=== PATIENT | female | born 1930 | race Caucasian/White ===

== ENCOUNTER → 2017-07-21 | Outpatient (CLI) | payer OTHER ==
[~2017-07-21] MED LIST: Amlodipine Besy10 MG PO; CLON.1 PO; COL-RITE250 MG PO; DONE10 PO; FISH1000 PO; Hydrocodone-Ap1 EA20 PO; Multiple Vitam1 EAC1 PO; Oxybutynin Chlo10 MG PO; TRIHYD253A PO; Zestril40 MG PO
== END ==
LOC: LAB SHORT 12:00
DX: R82.99 Other abnormal findings in urine (principal); R30.9 Painful micturition, unspecified
CPT/HCPCS: 87077; 87086; 87186

== ENCOUNTER → 2017-12-31 | Outpatient (CLI) | payer OTHER | END | disposition home or self-care (01) | LOC: PLD 08:19 → LAB SHORT 08:19 → EDSTATUS 10:00 | DX: D04.39 Carcinoma in situ of skin of other parts of face (principal); L57.8 Other skin changes due to chronic exposure to nonionizing radiation | CPT/HCPCS: 88305 ==

== ENCOUNTER → 2018-10-03 | Outpatient (CLI) | payer OTHER | END | disposition home or self-care (01) | LOC: LAB 09:37 → LAB SHORT 09:37 | DX: R30.0 Dysuria (principal) | CPT/HCPCS: 87077; 87086; 87147; 87186 ==

== ENCOUNTER → 2018-12-01 | Outpatient (CLI) | payer OTHER | END | disposition home or self-care (01) | LOC: LAB SHORT 10:53 → LAB 10:53 | DX: N39.0 Urinary tract infection, site not specified (principal); R30.0 Dysuria | CPT/HCPCS: 87077; 87086; 87186 ==

== ENCOUNTER → 2019-01-14 | Outpatient (CLI) | payer OTHER | END | disposition home or self-care (01) | LOC: LAB SHORT 12:30 → LAB 12:30 | DX: R30.0 Dysuria (principal) | CPT/HCPCS: 87077; 87086; 87186 ==

== ENCOUNTER → 2019-01-26 | Outpatient (CLI) | payer OTHER | END | disposition home or self-care (01) | LOC: LAB SHORT 07:44 → PLD 07:44 | DX: D04.62 Carcinoma in situ of skin of left upper limb, including shoulder (principal) | CPT/HCPCS: 88305 ==

== ENCOUNTER → 2019-02-05 | Outpatient (CLI) | payer OTHER | END | disposition home or self-care (01) | LOC: LAB SHORT 17:08 → LAB 17:08 | DX: R30.0 Dysuria (principal) | CPT/HCPCS: 87077; 87086; 87186 ==

== ENCOUNTER → 2019-04-21 | Outpatient (CLI) | payer OTHER | END | disposition home or self-care (01) | LOC: LAB 19:27 → LAB SHORT 19:27 | DX: N39.0 Urinary tract infection, site not specified (principal) | CPT/HCPCS: 87077; 87086; 87186 ==

== ENCOUNTER 2019-10-09 17:39 | Inpatient (IN) | payer OTHER ==
[~2019-10-09] VITALS: Ht 152.4 cm; Wt 45.2 kg
[~2019-10-09 17:39] MED LIST changes: +Daily Multiple1 EACH PO; -Hydrocodone-Ap1 EA20 PO; -Multiple Vitam1 EAC1 PO; +NORCO 10-325 T1 EACH PO; +OXYB5 PO; -Oxybutynin Chlo10 MG PO
[2019-10-09] MEDS ORDERED: Cranberry300 MG PO (18:52)
[2019-10-09] MEDS ORDERED: Vitamin D2000 UNIT PO (18:52)
[2019-10-09] MEDS ORDERED: SENN187 PO (18:52)
[2019-10-09 19:04] LABS: BASOPHILS ABSOLUTE AUTO 0.03 K/mm3 (0.00-0.23); BASOPHILS PERCENT AUTO 0 % (0-2); EOSINOPHILS ABSOLUTE AUTO 0.08 K/mm3 (0.00-0.68); EOSINOPHILS PERCENT AUTO 1 % (0-6); Hematocrit 31.6 % (33.0-51.0); Hemoglobin 10.6 g/dL (11.5-16.0); IMMATURE GRAN ABSOLUTE AUTO 0.02 K/mm3 (0.00-0.10); IMMATURE GRAN PERCENT AUTO 0 % (0-1); LYMPHOCYTES ABSOLUTE AUTO 0.36 K/mm3 (0.84-5.20); LYMPHOCYTES PERCENT AUTO 4 % (21-46); MONOCYTES PERCENT AUTO 5 % (4-13); Mean Corpuscular HGB 32.5 pg (26.0-34.0); Mean Corpuscular HGB Conc 33.5 g/dL (31.5-36.5); Mean Corpuscular Volume 97 fL (80-100); Mean Platelet Volume 12.2 fL (9.1-12.4); NEUTROPHILS ABSOLUTE AUTO 7.69 K/mm3 (1.96-9.15); NEUTROPHILS PERCENT AUTO 90 % (41-73); Platelet Count 159 K/mm3 (150-400); RDW Coefficient Variation 12.7 % (11.7-14.2); RDW Standard Deviation 45.2 fL (35.1-46.3); Red Blood Cell Count 3.26 M/mm3 (3.80-5.20); White Blood Cell Count 8.58 K/mm3 (4.00-11.30)
[2019-10-09 19:27] LABS: Alanine Aminotransfer (ALT/SGP 21 U/L (12-78); Albumin, Blood 3.5 g/dL (3.4-5.0); Albumin/Globulin Ratio 1.1 (0.8-1.8); Alk Phos 55 U/L (50-136); Anion Gap 7 mmol/L (6-16); Aspartate Aminotrans (AST/SGOT 14 U/L (12-37); Bilirubin, Total 0.3 mg/dL (0.1-1.0); Blood Urea Nitrogen 26 mg/dL (8-24); Bun/Creatinine Ratio 30.7 (12.0-20.0); CO2, Blood 27 mmol/L (21-32); Calcium, Blood 9.2 mg/dL (8.5-10.1); Chloride, Blood 103 mmol/L (98-108); Creatinine, Blood 0.85 mg/dL (0.40-1.00); Globulin, Blood 3.1 g/dL (2.2-4.0); Glomerular Filtration Rate >60 (60-); Glucose, Blood 162 mg/dL (70-99); Potassium, Blood 3.7 mmol/L (3.5-5.5); Sodium, Blood 137 mmol/L (136-145); Total Protein, Blood 6.6 g/dL (6.4-8.2)
[2019-10-10 04:23] LABS: Hematocrit 29.7 % (33.0-51.0); Hemoglobin 10.2 g/dL (11.5-16.0); Mean Corpuscular HGB 32.4 pg (26.0-34.0); Mean Corpuscular HGB Conc 34.3 g/dL (31.5-36.5); Mean Corpuscular Volume 94 fL (80-100); Mean Platelet Volume 12.2 fL (9.1-12.4); Platelet Count 139 K/mm3 (150-400); RDW Coefficient Variation 12.8 % (11.7-14.2); RDW Standard Deviation 43.8 fL (35.1-46.3); Red Blood Cell Count 3.15 M/mm3 (3.80-5.20); White Blood Cell Count 6.68 K/mm3 (4.00-11.30)
[2019-10-10 04:40] LABS: Alanine Aminotransfer (ALT/SGP 19 U/L (12-78); Albumin, Blood 3.2 g/dL (3.4-5.0); Albumin/Globulin Ratio 1.1 (0.8-1.8); Alk Phos 53 U/L (50-136); Anion Gap 7 mmol/L (6-16); Aspartate Aminotrans (AST/SGOT 16 U/L (12-37); Bilirubin, Total 0.5 mg/dL (0.1-1.0); Blood Urea Nitrogen 21 mg/dL (8-24); Bun/Creatinine Ratio 23.9 (12.0-20.0); CO2, Blood 27 mmol/L (21-32); Calcium, Blood 8.7 mg/dL (8.5-10.1); Chloride, Blood 106 mmol/L (98-108); Creatinine, Blood 0.88 mg/dL (0.40-1.00); Globulin, Blood 2.9 g/dL (2.2-4.0); Glomerular Filtration Rate >60 (60-); Glucose, Blood 121 mg/dL (70-99); Potassium, Blood 3.7 mmol/L (3.5-5.5); Sodium, Blood 140 mmol/L (136-145); Total Protein, Blood 6.1 g/dL (6.4-8.2)
--- NOTE | 2019-10-10 07:08 | NUR ---
SHIFT SUMMARY PATIENT ALERT, ORIENTED TO SELF AND FAMILY. ARRIVED TO THE UNIT AT 2215 ON 10/09/19 WITH DAUGHTER. PATIENT'S DAUGHTER ANSWERED MEDICATION AND HISTORY QUESTIONS PATIENT IS NOT A RELIABLE HISTORIAN. PATIENT MEDICATED FOR PAIN PER EMAR AND FELL ALSEEP AND DAUGHTER WENT HOME. ABOUT 0500 PATIENT BECAME RESTLESS AND WAS TRYING TO CRAWL OUT OF BED AND WAS NOT ABLE TO BE EASILY REDIRECTED TO STAY IN BED. PATIENT MEDICATED FOR PAIN AND DAUGHTER CALLED PER HER REQUEST. DAUGHTER IS CURRENTLY AT BEDSIDE AND BROUGHT PATIENT'S POLST IN. POLST COPIED AND PLACED INTO HER CHART. PALLIATIVE CARE CONSULT CALLED IN. BED IN LOWEST POSITION WITH WHEELS LOCKED AND ALARM ON. CALL LIGHT WITHIN REACH. REPORT GIVEN TO ONCOMING RN.
--- NOTE | 2019-10-10 08:09 | NUR ---
CONSULTATION AND PAIN: ORDERED ORTHO CONSULT CALLED IN TO THE ANSWERING SERVICE. PATIENT RESTLESS IN BED. SHE IS PULLING ON HER SLEEVES AND THE SHEETS. UNABLE TO LIE STILL AND RELAX. PATIENT REPORTS THE PAIN IN HER HIP IS "10/10". SPOKE WITH DR. BLANCHARD. NEW ORDERS FOR PAIN AND ANXIETY.
--- NOTE | 2019-10-10 11:12 | NUR ---
10/10/[address] DID A BLOCK ON THE RIGHT HIP PRIOR TO THE PROCEDURE.
--- NOTE | 2019-10-10 12:57 | NUR ---
TRANSFER TO SURG: ASSISTED PATIENT'S DAUGHTER TO ROOM 215 WHERE PATIENT WAS WAITING IN HER BED. PROVIDED BEDSIDE REPORT TO [facility] [employer]AT[employer] SUBMISSIONS ASSOCIATE. PATIENT MEDICATION IN LOCKED MEDICATION DRAWER.
--- NOTE | 2019-10-10 13:00 | NUR ---
ARRIVED FROM PACU VIA BED, DROWSY, DENIES ANY PAIN, APPEARS TO BE COMFORTABLE, R HIP DSG C/D/I, DAUGHTER AT BEDSIDE, CONT. TO MONITOR FOR ANY CHANGES, BED ALARM TURNED ON.
[2019-10-11 03:27] LABS: BASOPHILS ABSOLUTE AUTO 0.02 K/mm3 (0.00-0.23); BASOPHILS PERCENT AUTO 0 % (0-2); EOSINOPHILS ABSOLUTE AUTO 0.05 K/mm3 (0.00-0.68); EOSINOPHILS PERCENT AUTO 1 % (0-6); Hematocrit 28.4 % (33.0-51.0); Hemoglobin 9.6 g/dL (11.5-16.0); IMMATURE GRAN ABSOLUTE AUTO 0.01 K/mm3 (0.00-0.10); IMMATURE GRAN PERCENT AUTO 0 % (0-1); LYMPHOCYTES PERCENT AUTO 16 % (21-46); MONOCYTES ABSOLUTE AUTO 0.36 K/mm3 (0.16-1.47); MONOCYTES PERCENT AUTO 6 % (4-13); Mean Corpuscular HGB 32.2 pg (26.0-34.0); Mean Corpuscular HGB Conc 33.8 g/dL (31.5-36.5); Mean Corpuscular Volume 95 fL (80-100); Mean Platelet Volume 12.1 fL (9.1-12.4); NEUTROPHILS ABSOLUTE AUTO 4.69 K/mm3 (1.96-9.15); NEUTROPHILS PERCENT AUTO 77 % (41-73); Platelet Count 130 K/mm3 (150-400); RDW Coefficient Variation 12.7 % (11.7-14.2); RDW Standard Deviation 43.6 fL (35.1-46.3); Red Blood Cell Count 2.98 M/mm3 (3.80-5.20); White Blood Cell Count 6.13 K/mm3 (4.00-11.30)
[2019-10-11 03:45] LABS: Anion Gap 6 mmol/L (6-16); Blood Urea Nitrogen 18 mg/dL (8-24); Bun/Creatinine Ratio 20.7 (12.0-20.0); CO2, Blood 30 mmol/L (21-32); Calcium, Blood 8.8 mg/dL (8.5-10.1); Chloride, Blood 104 mmol/L (98-108); Creatinine, Blood 0.87 mg/dL (0.40-1.00); Glomerular Filtration Rate >60 (60-); Glucose, Blood 109 mg/dL (70-99); Potassium, Blood 3.4 mmol/L (3.5-5.5); Sodium, Blood 140 mmol/L (136-145)
--- NOTE | 2019-10-11 04:36 | NUR ---
SHIFT SUMMARY POD 1 RIGHT HIP PINNING. PT [id number] DURING NIGHT, BASELINE DEMENTIA. REMOVED AQUACEL DRESSING AND ATTEMPTED TO PULL STERI STRIPS OFF. REDIRECTED WELL, NEW DRESSING APPLIED. SCANT AMOUNT SS DRAINAGE. PT UP TO BSC DURING SHIFT, FWW AND GB. TOLERATED WELL. VOIDING AND TOLERATING PO WELL. BED ALARM ON DURING THE NIGHT, PT ATTEMPTING OOB DURING SHIFT.
--- NOTE | 2019-10-11 18:53 | NUR ---
SHIFT SUMMARY PT A&OX4, VSS, POD1 R HIP PIN, MEDIPORE CDI, WBAT. AMBULATING WITH 1 MIN ASSIST W/FWW & GB TO BRP/CHAIR/BED; UP TO CHAIR T/O SHIFT. VOIDING WELL. ANTON PO, DENIES N&V; MEDS WHOLE WITH APPLESAUCE. DAUGHTER AT BEDSIDE. WILL REPORT TO ONCNU MCDANIEL RN.
[2019-10-12 04:44] LABS: BASOPHILS ABSOLUTE AUTO 0.02 K/mm3 (0.00-0.23); BASOPHILS PERCENT AUTO 0 % (0-2); EOSINOPHILS ABSOLUTE AUTO 0.18 K/mm3 (0.00-0.68); EOSINOPHILS PERCENT AUTO 4 % (0-6); Hematocrit 28.2 % (33.0-51.0); Hemoglobin 9.5 g/dL (11.5-16.0); IMMATURE GRAN PERCENT AUTO 0 % (0-1); LYMPHOCYTES ABSOLUTE AUTO 0.95 K/mm3 (0.84-5.20); LYMPHOCYTES PERCENT AUTO 21 % (21-46); MONOCYTES ABSOLUTE AUTO 0.35 K/mm3 (0.16-1.47); MONOCYTES PERCENT AUTO 8 % (4-13); Mean Corpuscular HGB 32.1 pg (26.0-34.0); Mean Corpuscular HGB Conc 33.7 g/dL (31.5-36.5); Mean Corpuscular Volume 95 fL (80-100); NEUTROPHILS ABSOLUTE AUTO 3.12 K/mm3 (1.96-9.15); NEUTROPHILS PERCENT AUTO 68 % (41-73); Platelet Count 123 K/mm3 (150-400); RDW Coefficient Variation 12.6 % (11.7-14.2); RDW Standard Deviation 43.9 fL (35.1-46.3); Red Blood Cell Count 2.96 M/mm3 (3.80-5.20); White Blood Cell Count 4.62 K/mm3 (4.00-11.30)
[2019-10-12 05:08] LABS: Anion Gap 5 mmol/L (6-16); Blood Urea Nitrogen 25 mg/dL (8-24); Bun/Creatinine Ratio 29.6 (12.0-20.0); CO2, Blood 30 mmol/L (21-32); Calcium, Blood 8.9 mg/dL (8.5-10.1); Chloride, Blood 101 mmol/L (98-108); Creatinine, Blood 0.85 mg/dL (0.40-1.00); Glomerular Filtration Rate >60 (60-); Glucose, Blood 106 mg/dL (70-99); Potassium, Blood 4.3 mmol/L (3.5-5.5); Sodium, Blood 136 mmol/L (136-145)
--- NOTE | 2019-10-12 05:28 | NUR ---
SHIFT SUMMARY POD 2 S/P RIGHT HIP PINNING, DRESSING APPEARS C/D/I. AMBULATES TO BATHROOM/ BSC W/FWW, GB, AND 1 PERSON SBA. VOIDING WELL, NO BM. APPEARS TO HAVE SLEPT T/O MOST OF SHIFT. TAKES PO MEDS WITH APPLESAUCE. MEDICATED ONCE FOR PAIN PER EMAR. IS CURRENTLY RESTING IN BED WITH CALL LIGHT IN REACH, BED IN LOWEST POSITION WITH ALARM ON FOR SAFETY. PLAN FOR OT/PT. POSSIBLE D/C WITH H/H? WILL CONT TO MONITOR AND GIVE REPORT TO ONCOMING DAY RN.
--- NOTE | 2019-10-12 17:30 | NUR ---
SHIFT SUMMARY PT HAS DONE WELL TODAY. WORKED WITH THERAPIES, UP IN CHAIR T/O SHIFT, UP TO BATHROOM SEVERAL TIMES, WHICH DAUGHTER STATES IS NORMAL FOR HER. PAIN WELL CONTROLLED. PT IMPULSIVE AND DOES NOT USE CALL LIGHT. 2 TAB ALARMS ON FOR SAFETY.
[2019-10-13 04:10] LABS: BASOPHILS ABSOLUTE AUTO 0.02 K/mm3 (0.00-0.23); BASOPHILS PERCENT AUTO 1 % (0-2); EOSINOPHILS ABSOLUTE AUTO 0.15 K/mm3 (0.00-0.68); EOSINOPHILS PERCENT AUTO 4 % (0-6); Hematocrit 28.8 % (33.0-51.0); Hemoglobin 9.6 g/dL (11.5-16.0); IMMATURE GRAN ABSOLUTE AUTO 0.02 K/mm3 (0.00-0.10); IMMATURE GRAN PERCENT AUTO 1 % (0-1); LYMPHOCYTES ABSOLUTE AUTO 0.81 K/mm3 (0.84-5.20); LYMPHOCYTES PERCENT AUTO 22 % (21-46); MONOCYTES ABSOLUTE AUTO 0.34 K/mm3 (0.16-1.47); MONOCYTES PERCENT AUTO 9 % (4-13); Mean Corpuscular HGB 32.3 pg (26.0-34.0); Mean Corpuscular HGB Conc 33.3 g/dL (31.5-36.5); Mean Corpuscular Volume 97 fL (80-100); Mean Platelet Volume 12.4 fL (9.1-12.4); NEUTROPHILS ABSOLUTE AUTO 2.43 K/mm3 (1.96-9.15); NEUTROPHILS PERCENT AUTO 65 % (41-73); Platelet Count 140 K/mm3 (150-400); RDW Coefficient Variation 12.7 % (11.7-14.2); RDW Standard Deviation 45.1 fL (35.1-46.3); Red Blood Cell Count 2.97 M/mm3 (3.80-5.20); White Blood Cell Count 3.77 K/mm3 (4.00-11.30)
[2019-10-13 04:25] LABS: Anion Gap 3 mmol/L (6-16); Blood Urea Nitrogen 31 mg/dL (8-24); Bun/Creatinine Ratio 36.6 (12.0-20.0); CO2, Blood 31 mmol/L (21-32); Calcium, Blood 9.1 mg/dL (8.5-10.1); Chloride, Blood 103 mmol/L (98-108); Creatinine, Blood 0.85 mg/dL (0.40-1.00); Glomerular Filtration Rate >60 (60-); Glucose, Blood 116 mg/dL (70-99); Potassium, Blood 4.4 mmol/L (3.5-5.5); Sodium, Blood 137 mmol/L (136-145)
--- NOTE | 2019-10-13 06:05 | NUR ---
SHIFT SUMMARY NO ACUTE CHANGES THIS SHIFT. DRESSING TO RIGHT HIP C/D/I. PAIN MANAGED WITH 1 NORCO, MEDICATED 2X. PT APPEARS TO HAVE SLEPT T/O MOST OF NIGHT. UP SEVERAL TIMES TO BATHROOM WITH FWW,GB, AND SBA. AOX3, VITALS WITHIN BASELINE. BED AND TAB ALARMS ON FOR SAFETY R/T IMPULSIVENESS AND FORGETFULNESS. PLAN FOR THERAPY THIS MORNING AND D/C HOME WITH H/H TODAY. WILL CONT TO MONITOR AND GIVE REPORT TO ONCOMING RN.
[2019-10-13] MEDS ORDERED: HYDR10 PO (09:09)
[2019-10-13] MEDS ORDERED: ONDA4ODT MM (09:11)
[2019-10-13] MEDS ORDERED: K-Dur20 MEQ PO (09:11)
--- NOTE | 2019-10-13 09:54 | NUR ---
PATIENTS DAUGHTER DECLINES NORCO PRESCRIPTION, STATES SHE HAS PAIN MEDS AT HOME. PRESCRIPTION SHREDDED WITH KIERA DONIS WITNESS
--- NOTE | 2019-10-13 10:14 | NUR ---
PRESCRIPTION FOR WHEELCHAIR AND CHART NOTES FAXED TO [employer] PER PATIENTS DAUGHTERS REQUEST. COPY OF CHART NOTES SENT HOME WITH PATIENTS DAUGHTER. PT AND HER DAUGHTER STATE THEY UNDERSTAND DISCHARGE INSTRUCTIONS AND ARE COMFORTABLE WITH DISCHARGE PLAN TO BE DISCHARGED TO HOME WITH [facility] DISCHARGED HOME
== END 2019-10-13 10:00 | disposition home or self-care (01) | DRG 482 ==
LOC: ER 17:39 → MEDS 21:33 → SURS 21:33 → MEDS 22:16 → SURS 10-10 12:49
PROVIDERS: Family Medicine; Orthopaedic Surgery; Physician Assistant; ADMIT Internal Medicine
PROC: 0QH634Z Insertion of Internal Fixation Device into Right Upper Femur, Percutaneous Approach (ICD-10-PCS; principal; 2019-10-10 10:00)
DX: S72.001A Fracture of unspecified part of neck of right femur, initial encounter for closed fracture (principal); I10 Essential (primary) hypertension; F03.90 Unspecified dementia, unspecified severity, without behavioral disturbance, psychotic disturbance, mood disturbance, and anxiety; M81.0 Age-related osteoporosis without current pathological fracture; F17.200 Nicotine dependence, unspecified, uncomplicated; E78.5 Hyperlipidemia, unspecified; G89.29 Other chronic pain; M54.9 Dorsalgia, unspecified; K59.09 Other constipation; W19.XXXA Unspecified fall, initial encounter; D69.6 Thrombocytopenia, unspecified; D64.89 Other specified anemias; Y93.9 Activity, unspecified; Y92.009 Unspecified place in unspecified non-institutional (private) residence as the place of occurrence of the external cause; Z88.5 Allergy status to narcotic agent; Z88.0 Allergy status to penicillin; Z88.8 Allergy status to other drugs, medicaments and biological substances; Z87.891 Personal history of nicotine dependence
CPT/HCPCS: 36415; 71045; 73502; 80048; 80053; 85025; 85027; 97116; 97162; 97166; 97530; 97535; 99285-25; A9270-GY; J0690; J1100; J1644; J2370; J2405; J2704; J3010; J7030; J7120